=== PATIENT | male | born 1970 | race Caucasian/White ===

== ENCOUNTER 2022-01-10 08:02 | Outpatient (CLI) | payer OTHER, SELFPAY ==
--- OUTSIDE RECORDS SUMMARY | 2022-01-10 08:04 | XMS_ITS | Clinical Summary ---
:1970 Author Organization [employer] [facility] [place] [address] Care Team Providers Name Role Phone Freddie Ha MD Primary Care Provider Allergies No known active allergies Medications No known medications Active Problems Problem Noted Date Deaf Immunizations Name Administration Dates Next Due Influenza, IIV3 (Age >=3 years) 01/12/2013, 03/10/2012 Influenza, IIV4 01/17/2017, 03/14/2015 Tdap 05/09/2009 Tuberculin (PPD) 09/13/2009, 08/31/2009 Family History Medical History Relation Name Comments Cancer Father leukemia. Cancer Maternal Grandmother lung Relation Name Status Comments Father Maternal Grandmother Social History Tobacco Use Types Packs/Day Years Used Date Never Smoker Smokeless Tobacco: Never Used Tobacco Cessation: Counseling Given: Yes Alcohol Use Standard Drinks/Week Comments Yes 0 (1 standard drink = 0.6 oz pure alcoho l) occ. 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 Body Mass Index 31.06 04/14/2019 9:49 AM MAIL HANDLERS SUPERVISOR Plan of Treatment Health Maintenance Due Date Last Done Comments COVID-19 vaccine series (#1) 1970 Hepatitis C screening for age 1203/15/1989 18-79 Colonoscopy through age 75 2016 Tetanus booster 05/09/2019 05/09/2009 BMI (ht and wt on same day) for 04/14/2020 04/14/2019, 02/22, age 18+ 11/06/2017, Additional history exists Depression screening for age 12+ 11/18/2020 11/19/2019, 03/2019, 07/07/2019, Additional history exists Zoster (shingles) series for age 1203/15/2021 50+ (1 of 2) Influenza for age 50-64 11/23/2021 01/17/2017, 03/14/2015, 01/12/2013, Additional history exists Lipids for age 45-75 11/05/2022 11/05/2017, 05/20/2013, 09/21/2010, Additional history exists Tdap Completed 05/09/2009 Results Not on filefrom Last 3 Months Insurance Payer Benefit Plan / Subscriber ID Effective Dates Phone Addre ss Type Group WC WORKERS COMP WC [facility] [id number] 2019-Pres [address] [place] [address] [employer] [id number] 2019-Presen [address] [place] [address] Kal Meyer Workers Comp Self [address] (Home) [place] [address] Kal Meyer Workers Comp Self [address] (Home) [place] [address] Care Teams Bridge Expert Relationship Specialty Start Date End Date Freddie Ha MD PCP - General Family Practice 01/12/13 [address] [place] [address]
--- NOTE | 2022-01-10 08:15 | MR_ITS ---
[address] [address] Phone:?[phone] Fax:?[phone] Referring Physician Information: Geovanny Schumacher [address] [facility] [address] Phone:?[phone] Fax:?[phone] Patient:?Kal Meyer D.O.B:?1970 Sex:?Male Phone:?[phone] [facility] MRN:?[id number] Exam Date:?01/10/2022 ? EXAM: MRI of the RIGHT SHOULDER, without contrast CLINICAL INFORMATION: Male, 51 years old, with right shoulder pain. INDICATION: Evaluate for rotator cuff tear. PRIOR SURGERY: None reported. PLAIN FILMS: None available. COMPARISONS: No prior MRIs available. TECHNICAL INFORMATION: Using a 1.5T MR scanner and a localizing surface coil: coronal obliques: PD, T2, STIR sagittal obliques: PD, T2 axials: PD, T2 SEDATION: None CONTRAST: None FINDINGS: Bones: Proximal humerus: No fracture or marrow edema/pathology. No humeral Hill-Sachs or reverse Hill-Sachs lesion/impaction or contusion. Glenoid: No fracture or marrow edema/pathology. No osseous Bankart lesion. Rotator cuff and muscles/tendons: Supraspinatus: Moderate supraspinatus tendinopathy with broad-based intermediate grade partial thickness tearing and a superimposed 1.1 x 0.9 cm area of full- thickness tearing at the anterior tendon insertion (sagittal T2 series 8 and coronal STIR series 4 image 11). No muscle atrophy. Infraspinatus: No tendinopathy, tear or atrophy. Teres minor: No tendinopathy, tear or atrophy. Subscapularis: Mild-moderate tendinopathy of the superior distal subscapularis with a 9 x 8 mm area of intermediate grade partial tearing at the superior leading edge of the tendon. No full-thickness tear or muscle atrophy. Deltoid: No strain or atrophy. Coracoacromial arch: Acromion morphology: The acromion has type II morphology. No discrete subacromial osseous spur or os acromiale. Acromiohumeral space: The acromiohumeral space is within normal limits. Coracohumeral space: The coracohumeral space is within normal limits. Acromioclavicular joint: Joint: Moderate-marked AC joint arthropathy with 5 mm of inferior osteophytosis, which results in a supraspinatus contour abnormality (sagittal T2 series 8 image 12 and coronal T2 series 6 image 11). Ligaments: Coracoclavicular ligaments are intact. Bursae: Subacromial-subdeltoid: Mild subacromial-subdeltoid bursitis. Subcoracoid: No convincing subcoracoid bursal thickening/bursitis. Biceps tendon: The long head of the biceps tendon is medially subluxated at the lesser tuberosity. Mild to moderate tendinopathy and low-grade partial-thickness tearing of the intra-articular biceps long head tendon (sagittal PD series 7 images 8-14). Glenohumeral joint: Effusion/cyst: Small glenohumeral joint effusion. Articular cartilage: Humeral head: No osteochondral abnormalities. Glenoid: No osteochondral abnormalities. Loose bodies: No discrete intra-articular body within the joint. Labrum:?No discrete labral tear or paralabral cyst identified on this non- arthrographic study. Inferior glenohumeral ligament/axillary pouch:?Moderate thickening of the inferior capsuloligamentous structures (coronal PD series 5 images 13-20). Additionally, there is soft tissue thickening throughout the rotator interval (sagittal PD series 7 images 9-14). IMPRESSION: 1. Moderate supraspinatus tendinopathy with a 1.1 x 0.9 cm area of full- thickness anterior insertional footprint tearing superimposed upon broad-based intermediate grade partial-thickness articular surface tearing. 2. Findings in keeping with a biceps juan injury: -Mild-moderate subscapularis tendinopathy with a 9 x 8 mm area of intermediate grade partial-thickness tearing at the superior leading edge of the tendon. -Medial subluxation of the biceps long head tendon at the lesser tuberosity. -Moderate tendinopathy and ill-defined low-grade partial tearing of the intra- articular biceps long head tendon, particularly adjacent to the lesser tuberosity. 3. Findings in keeping with any clinical symptoms of adhesive capsulitis. 4. Small glenohumeral joint effusion. No full-thickness chondral defect or evidence of osteoarthritis. 5. Moderate-marked AC joint arthropathy with inferior osteophytosis that results in a supraspinatus contour reality. Additionally, there is mild subacromial- subdeltoid bursitis. However, the acromiohumeral space is normal. 6. No labral tear or paralabral cyst. BC Electronically signed on 01/10/2022 1:46:00 PM by Shukri Tellez M.D.
== END 2022-01-10 08:03 | disposition home or self-care (01) ==
PROVIDERS: PCP Family Medicine; Visit Provider Physician Assistant
DX: M25.511 Pain in right shoulder (principal); M75.01 Adhesive capsulitis of right shoulder; M25.411 Effusion, right shoulder; M75.101 Unspecified rotator cuff tear or rupture of right shoulder, not specified as traumatic; S46.911A Strain of unspecified muscle, fascia and tendon at shoulder and upper arm level, right arm, initial encounter
CPT/HCPCS: 73221

== ENCOUNTER 2022-02-26 08:29 | Outpatient (CLI) | payer OTHER, SELFPAY ==
--- OUTSIDE RECORDS SUMMARY | 2022-02-26 08:32 | XMS_ITS | Clinical Summary ---
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 Body Mass Index 31.06 04/14/2019 9:49 AM FITNESS SALES ASSOCIATE Plan of Treatment Health Maintenance Due Date Last Done Comments COVID-19 vaccine series (#1) 1970 HIV for age 15-65 1986 Hepatitis C screening for age 1203/15/1989 18-79 [...] ss Type Group WC WORKERS COMP WC [facility] [id number] 2019-Pres [address] [place] [address] [employer]NERS [facility] [employer]VANTAGE [id number] 2019-Presen [address] [place] [address] Kal Meyer Workers Comp Self [address] (Home) [place] [address] Kal Meyer Workers Comp Self [address] (Home) [place] [address] Care Teams Lawyers Relationship Specialty Start Date End Date Freddie Ha MD PCP - General Family Practice 01/12/[address] [place] [id number]
[2022-02-26 14:00] LABS: Chloride* 106 mmol/L (96-114)
[2022-02-26 14:01] LABS: Potassium* 4.4 mmol/L (3.6-5.1); Sodium* 141 mmol/L (135-149)
[2022-02-26 14:03] LABS: Creatinine* 0.9 mg/dL (0.5-1.5); Estimated Glomerular Filt Rate 104 ml/min
[2022-02-26 14:04] LABS: Blood Urea Nitrogen* 20 mg/dL (7-30); Calcium* 9.2 mg/dL (8.4-10.6); Carbon Dioxide* 26 mmol/L (20-32); Glucose* 83 mg/dL (60-115)
== END 2022-02-26 08:30 | disposition home or self-care (01) ==
PROVIDERS: PCP Family Medicine; Visit Provider Family Medicine
DX: Z01.818 Encounter for other preprocedural examination (principal)
CPT/HCPCS: 80048

== ENCOUNTER 2022-03-08 07:00 | Day surgery (SDC) | payer OTHER, SELFPAY ==
[2022-03-08] VITALS (15 sets, daily range): BP systolic 106–139; BP diastolic 68–97; PULSE 51–69; RESP 14–18; TEMP 36.2–36.7; O2SAT 92–99; BMI 26.6
[2022-03-08] MEDS: LACTATED RINGERS 1000 ML 1,000 ML 100 ML IV ×2 (07:30→09:41)
[2022-03-08] MEDS: SODIUM CHLORIDE 0.9 % (FLUSH) 10 ML SYRINGE IVF (07:30)
[2022-03-08] MEDS: CELECOXIB 200 MG CAPSULE PO (07:38)
[2022-03-08] MEDS: ACETAMINOPHEN 500 MG TABLET 1000 MG PO (07:38)
[2022-03-08] MEDS: OXYCODONE (CR) 10 MG TAB.ER.12H PO (07:39)
--- NOTE | 2022-03-08 08:12 | SUR.PREOP ---
TIME?OUT:?0816 PT/RN/MDA?VERIFICATION?OF?SURGICAL?SITE,?PROCEDURE,?AND?CONSENT OBTAINED?PRIOR?TO?INVASIVE?PROCEDURE.
[2022-03-08] MEDS: MIDAZOLAM HCL 1 MG/ML inj IVP (08:18)
[2022-03-08] MEDS: fentaNYL 100 MCG/2 ML inj IVP (08:18)
--- NOTE | 2022-03-08 09:04 | W.PM.NB ---
Nerve Block Nerve Block Time Seen by Provider: 08:16 Date Seen: 03/08/22 Type of block requested by surgeon for post-operative analgesia: supraclavicular Side: right Time out performed: Yes Verification of patient name: Yes Verification of date of : Yes Site marking: site marked Name of person performing procedure: Nish Continuous monitoring Was continuous monitoring of O2 sat, B/P, java web application developer, recorded every 15 minutes?: Yes Procedure Checklist: sterile prep, needles and gloves Ultrasound guided. Images saved: Yes Medications given in 5ml increments after negative aspiration: Ropivicaine %: 0.5 mL: 20 Needle gauge: 22 Decadron (mg): 10 Precedex (mcg): 25 Patient tolerated procedure well: Yes Block Charges Block Charge (with Pro Fee): Brachial Plexus Use of Ultrasound Machine for Block: Yes- US Guidance/pain block
[2022-03-08] MEDS: EPINEPHrine 1 MG in SODIUM CHLORIDE IRRIG SOLUTION 3,000 ML 6303 MG IRRIGATION (09:30)
--- NOTE | 2022-03-08 10:31 | PM.ORPRC ---
Procedure Note Date of procedure: 03/08/22 Procedure: PREOPERATIVE DIAGNOSIS: Right shoulder rotator cuff tear, AC joint arthrosis POSTOPERATIVE DIAGNOSIS: Right shoulder rotator cuff tear, AC joint arthrosis NAME OF OPERATION: Right shoulder arthroscopic subacromial decompression, distal clavicle excision, mini open rotator cuff repair SURGEON: Vernon Amaya MD FORM TAMPER OPERATOR: Brigitte Aguilera PA-C ANESTHESIA: Supraclavicular block plus general endotracheal ESTIMATED BLOOD LOSS: 5 mL COMPLICATIONS: None SPECIMENS: None DRAINS: None PREOPERATIVE ANTIBIOTICS: Ancef 2 grams INDICATIONS: The patient is a 51-year-old with a history of right shoulder pain secondary to the above diagnoses. Despite appropriate non operative management, they continue to have symptoms. Operative intervention was recommended. The risks, benefits and expected outcomes were discussed in detail. These included but were not limited to: Infection, bleeding, injury to blood vessel or nerve, venous thromboembolism. All questions were answered to their satisfaction. PROCEDURE: A supraclavicular block was placed by Anesthesia. General anesthesia was administered. The patient was placed in the high beach chair position. The right shoulder was prepped and draped in the usual sterile fashion. The glenohumeral joint was infiltrated with 20 mL of normal saline with epinephrine. The posterior portal was established, the arthroscope was introduced. The anterior portal was established, Diagnostic arthroscopy was performed with findings as follows: The biceps has some longitudinal splitting, just proximal to the bicipital groove. There is some degenerative fraying of the anterior and superior labrum. Articular surfaces on the humeral head and glenoid are normal. There are no loose bodies. There is a full-thickness tear of the supraspinatus. The shaver was used to debride the labrum. The arthroscope was placed in the subacromial space, the lateral portal was established. The [employer] [place] was used to dissect the acromion free. The CA ligament was recessed off the anterior acromion, the AC joint was exposed. The acromioplasty was performed with the bur in the posterior portal. The bur was then placed in the lateral portal and the lateral and anterior aspect of the acromion were resected. The undersurface of the distal clavicle was resected through the lateral portal. Finally, the bur was placed in the anterior portal and the remainder of the distal clavicle was resected for a total of 10 mm. An accessory anterolateral portal was placed. The subacromial/subdeltoid bursa was aggressively debrided. There is a full-thickness tear of the supraspinatus. Arthroscopic instruments were removed. The accessory anterolateral portal was extended proximally and distally, subcutaneous dissection was taken with electrocautery to the deltoid. The deltoid was divided in line with its fibers. The static retractor was placed. The subacromial/subdeltoid bursa was debrided with the Cornelius scissors. The greater tuberosity was debrided to punctate bleeding bone with the Lempert rongeur. The upper subscap insertion was released with electrocautery. The most proximal and lateral aspect of the lesser tuberosity was debrided with the Lempert rongeur. A SutureTape was placed in the upper border of the subscap in an inverted mattress fashion. It was placed in the most proximal, lateral aspect of the lesser tuberosity to secure the upper subscap and centralize the biceps. Both limbs of the FiberWire in the eyelet were passed through the upper border of the subscap and tied over the top, completing subscap repair. Two Arthrex Bio[employer] SwiveLock anchors were placed just off the articular surface. Both limbs of the FiberWire and fiber tape were passed using the scorpion. A fiber link was placed in the leading edge of the rotator cuff x2. We tied the 2 central FiberWire sutures over the rotator cuff. We then proceeded with a lateral row of SwiveLock anchors x 2 crossing the FiberTape and incorporating the FiberWire and fiber link into each lateral row anchor. This provides an anatomic, watertight repair of the rotator cuff. There is no tension on the repair with the shoulder at 0? abduction. The wound was irrigated with normal saline off the pump. The deltoid was repaired with an 0 Vicryl in an interrupted [id number] fashion. Subcutaneous tissues were closed with a 3-0 Vicryl. Skin was closed with a 3-0 Monocryl in a subcuticular fashion. A dry dressing, polar care and sling were applied. Sponge and needle counts were correct x2. The patient tolerated the procedure well. There were no apparent complications. They were carefully transferred to the hospital bed and taken to the postanesthesia care unit in satisfactory condition. PLAN: The patient will be discharged to home. No active range of motion of the shoulder will be allowed for 6 weeks postoperatively. They can work on active range of motion of the elbow, wrist and fingers. They will follow up in the office next week for a wound check and an AP and transscapular Y-view of the shoulder prior to being seen.
--- NOTE | 2022-03-08 10:45 | W.ANESCHARGE ---
Anesthesia Charges Start Date/Time Anesthesia Start Date: 03/08/22 Anesthesia Start Time: 08:44 Stop Date/Time Anesthesia Stop Date: 03/08/22 Anesthesia Stop Time: 11:02 Summary Emergency: No
--- NOTE | 2022-03-08 11:03 | W.ANESCHARGE ---
Anesthesia Charges Start Date/Time Anesthesia Start Date: 03/08/22 Anesthesia Start Time: 08:44 Stop Date/Time Anesthesia Stop Date: 03/08/22 Anesthesia Stop Time: 11:02 Summary Emergency: No
== END 2022-03-08 12:58 | disposition home or self-care (01) ==
PROVIDERS: PCP Family Medicine; Visit Provider Orthopaedic Surgery
PROC: (CPT 23412; principal; 2022-03-08 08:15)
DX: M75.121 Complete rotator cuff tear or rupture of right shoulder, not specified as traumatic (principal); M19.011 Primary osteoarthritis, right shoulder; M25.511 Pain in right shoulder
CPT/HCPCS: 29824; 29826; 23412; 01630; 64415; 76942; A9270; C1713; J0171; J0330; J1100; J2250; J2405; J2704; J2710; J2795; J3010; J7120

== ENCOUNTER 2023-03-16 10:21 | Emergency (ER) | payer OTHER, SELFPAY ==
[2023-03-16 10:30] VITALS: BP 136/88; PULSE 69; RESP 18; TEMP 36.3; O2SAT 97; BMI 27.8
--- NOTE | 2023-03-16 11:37 | CRLHL7_ITS ---
For Patients: As a result of the Century Cures Act, medical imaging exams and procedure reports are released immediately into your electronic medical record. You may view this report before your referring provider. If you have questions, please contact your health care provider. INDICATION: Abdominal pain. COMPARISON: None. TECHNIQUE: 101 mL Isovue-370 IV contrast. FINDINGS: Semiopaque ground-glass nodule left lower lobe 14 mm. Similar size less dense ground-glass nodule abutting the plural anterior from this. Loose 2.2 cm ground-glass nodule in the right middle lobe. Some ground-glass at the periphery of the lingula. Moderate low attenuation of liver parenchyma diffusely. No mass. No ductal dilatation. Around a large enhancing nodule of the left adrenal 2.8 cm diameter. Some heterogeneity of enhancement. Small cyst posterior upper pole left kidney. Tiny cyst ventral lower pole left kidney. S several small cysts in the parenchyma of the lower pole right kidney. No mass. No nephrolithiasis. Normal retrocecal appendix. No dilatation or inflammation of large or small bowel. A few rare diverticula in the left colon. No air or fluid in the peritoneum garsia. Normal size of the prostate. No pelvic or inguinal adenopathy. No significant bone finding. IMPRESSION: 1. Nonspecific enhancing nearly 3 cm nodule left adrenal. This does not have features typical of an adenoma. Further characterization with adrenal CT protocol recommended. 2. Scattered foci of ground-glass in the lung bases may be age indeterminate infectious or inflammatory. Correlate with clinical presentation. CT of the chest would better characterize if there is clinical concern. 3. Hepatic steatosis. Please note that all CT scans at this facility use dose modulation, iterative reconstruction, and/or weight-based dosing when appropriate to reduce radiation dose to as low as reasonably achievable. Dictated by Gregory Bennett MD @ 03/16/2023 2:18:45 PM (Electronically Signed)
--- NOTE | 2023-03-16 11:43 | ED_ITS ---
HPI - General Adult General Time Seen by Provider: 11:21 Date Seen: 03/16/23 Chief complaint: Back Injury/Pain Stated complaint: flank pain Time Seen by Provider: 03/16/23 11:21 Source: patient, RN notes reviewed and copy and print associate (ASL via ipad) Mode of arrival: ambulatory Limitations: no limitations History of Present Illness HPI narrative: This 53-year-old male is coming in with complaint of left lower back pain but note it seems like it is more inside. He got up earlier today, was there. He is not sure if it happened upon awakening or getting up. He has a throbbing type pain in that left low back, no fevers, no history of trauma. There is no change in urination, urine is clear, no burning, not cloudy. He ate breakfast this morning, had no problems with it. He is not having any nausea or vomiting, no anorexia. Bowel habits have been normal but does note maybe today's been a little bit more gassy with flatus. Does not note abdominal pain per se. Pain is not radiating down the leg. He reportedly has had an inguinal hernia repair, does states that he is degenerative disc disease but no history of sciatica. He tried some Tylenol earlier, maybe helped a little bit. Related Data Previous Rx's Medication Instructions Recorded cyclobenzaprine 10 mg tablet 10 mg PO TID PRN muscle spasm #30 03/16/23 tabs ketorolac 10 mg tablet 10 mg PO Q6H PRN pain 5 days #20 03/16/23 tabs Allergies Allergy/AdvReac Type Severity Reaction Status Date / Time No Known Drug Allergies Allergy Verified 07/16/22 07:47 Review of Systems Status of ROS: Reports: 6 or more systems reviewed and unremarkable except as noted in History and below [facility] Medical History History of concussion (12/2018) ?Z87.820 - Personal history of traumatic brain injury (ICD-10) History of cervical fracture ?Z87.81 - Personal history of (healed) traumatic fracture (ICD-10) Surgical History Status post right rotator cuff repair (03/08/22) ?Z98.890 - Other specified postprocedural states (ICD-10) H/O hernia repair ?Z98.890 - Other specified postprocedural states (ICD-10) ?Z87.19 - Personal history of other diseases of the digestive system (ICD-10) Social History Smoking Status: Never smoker How often do you have a drink containing alcohol: 2-4 times a month Alcohol type: hard liquor How many standard drinks containing alcohol do you have on a typical day: 1 or 2 How often do you have six or more drinks on one occasion: Never AUDIT-C Alcohol total score: 2 Non-prescribed substance use: denies use Caffeine: Yes Little interest or pleasure in doing things: several days Feeling down, depressed, or hopeless: several days Exam Const: Vital Signs, click to edit/add: Vital Signs - 24 hr 03/16/23 10:30 03/16/23 13:30 Temperature 97.4 F L 97.4 F L Pulse Rate [Right Pulse Oximeter] 69 69 Respiratory Rate 18 18 Blood Pressure [Ri ght Upper Arm] 136/88 136/88 Pulse Oximetry 97 97 Oxygen Delivery Me thod Room Air Room Air Patient is alert, interactive, no apparent distress. Sclera clear, face atraumatic. CV regular rate and rhythm, no murmur, normal S1-S2, no S3-S4. No JVDs distension noted, neck is slender. No midline tenderness over his back, no skin changes visualized. Lungs are clear, good air entry, no wheezing or crackles. He has no CVA tenderness. No tenderness in the lumbar area in the paraspinous area of his back, nothing over the iliac crest. I cannot find any palpable tenderness on his back. On his abdominal exam, does have some left mid to lower quadrant tenderness without rebound or guarding, nor underlying mass. There is no inguinal mass noted but states he has maybe a little tender in the superior portion of the left inguinal area. Documenting provider has reviewed patient's vital signs: yes Course Course ED Course: In this differential, certainly it could be musculoskeletal back pain but with his abdominal exam, do wonder about intra-abdominal pathology. He could have an early diverticulitis, possible early kidney stone. Intra-abdominal pathology does need to be ruled out, we have discussed doing CT of his abdomen which he does agree. Will try to see if he responds to Toradol for some initial pain management. Will get a full complement of labs including urinalysis. Nephrolithiasis and renal colic is also possibility. Reevaluation(s) Time of Reevaluation #1: 13:30 Reevaluation #1: Reviewed with patient that we are waiting the CT to be read by Radiology. He is feeling better with the Toradol. We are just waiting his CT results at this time. Time of Reevaluation #2: 14:55 Reevaluation #2: Have reviewed incidental CT finding of the left adrenal nodule, will require outpatient dedicated CT, can get this done with his primary. Also reviewed the back pain, will have him try a course of Toradol and Flexeril, continue with baseline Tylenol outpatient. We discussed follow-up with his primary care provider, will be providing him handouts. Will give another 15 mg IV Toradol prior to discharge. Vital Signs Vital signs: Initial Vital Signs Temperature 97.4 F L 03/16/23 10:30 Temperature Source Temporal Artery Scan 03/16/23 10:30 Pulse Rate 69 03/16/23 10:30 Respiratory Rate 18 03/16/23 10:30 Blood Pressure 136/88 03/16/23 10:30 Blood Pressure Mean 104 03/16/23 10:30 Blood Pressure Position Sitting 03/16/23 10:30 Pulse Oximetry 97 03/16/23 10:30 Oxygen Delivery Method Room Air 03/16/23 10:30 Vital Signs Temperature 97.4 F L 03/16/23 10:30 Pulse Rate 69 03/16/23 10:30 Respiratory Rate 18 03/16/23 10:30 Blood Pressure 136/88 03/16/23 10:30 Pulse Oximetry 97 03/16/23 10:30 Oxygen Delivery Method Room Air 03/16/23 10:30 Temperature 97.4 F L 03/16/23 13:30 Pulse Rate 69 03/16/23 13:30 Respiratory Rate 18 03/16/23 13:30 Blood Pressure 136/88 03/16/23 13:30 Pulse Oximetry 97 03/16/23 13:30 Oxygen Delivery Method Room Air 03/16/23 13:30 Medications Administered Medications: Discontinued Medications Generic Name Dose Route Start Last Admin Trade Name Freq PRN Reason Stop Dose Admin Sodium Chloride 500 mls @ 500 mls/hr 03/16/23 11:36 03/16/23 14:49 0.9 % Sodium Chloride 500 Ml IV 03/16/23 12:35 Infused .Q1H ONE Infusion Ketorolac Tromethamine 15 mg 03/16/23 11:36 03/16/23 12:32 Ketorolac 15 Mg/Ml Inj IVP 03/16/23 11:37 15 mg ONCE ONE Administration Medical Decision Making Lab Data Lab results reviewed: Yes I reviewed the patient's lab results Labs: Lab Results 03/16/23 03/16/23 Range/Units 11:55 12:23 WBC 9.51 (4.50-11.00) K/uL RBC 5.64 (4.30-5.90) m/uL Hgb 16.6 (13.5-17.5) gm/dL Hct 48.7 (37.0-53.0) % MCV 86 (80-100) fL MCH 29 (26-34) pg MCHC 34 (32-36) gm/dL RDW Coeff of [place]quan 12.7 (11.5-15.5) % Plt Count 256 (140-440) K/uL Neut % (Auto) 77.3 H (42.0-72.0) % Lymph % (Auto) 14.4 L (20-44) % [place] % (Auto) 5.2 (0.0-11.0) % Eos % (Auto) 2.1 (0.0-7.0) % Baso % (Auto) 0.1 (0.0-3.0) % Neut # (Auto) 7.40 H (1.7-7.0) K/uL Lymph # (Auto) 1.40 (0.90-2.90) K/uL [place] # (Auto) 0.50 (0.00-0.90) K/UL Eos # (Auto) 0.20 (0.00-0.50) K/uL Baso # (Auto) 0.01 (0.00-0.30) K/uL Abs Immat Gran (auto) 0.09 (0.00-0.30) K/uL Imm/Tot Granulo (auto) 0.9 % Sodium 138 (135-149) mmol/L Potassium 4.4 (3.6-5.1) mmol/L Chloride 102 (96-114) mmol/L Carbon Dioxide 27 (20-32) mmol/L Anion Gap 9 (7-15) mEq/L BUN 16 (7-30) mg/dL Creatinine 0.7 (0.5-1.5) mg/dL Estimated Creat Clear 135.49 Estimated GFR 111 ml/min Glucose 106 (60-115) mg/dL Lactate 1.3 (0.5-1.9) mmol/L Calcium 9.3 (8.4-10.6) mg/dL Total Bilirubin 0.8 (0.1-1.5) mg/dL AST 22 (12-35) U/L ALT 22 (4-50) U/L Alkaline Phosphatase 75 (40-150) U/L C-Reactive Protein 0.6 (0.5-1.0) mg/dL Total Protein 7.6 (6.0-8.3) g/dL Albumin 4.6 (3.3-5.0) g/dL Urine Color Yellow (Yellow) Urine Appearance Clear (Clear) Urine pH 7.5 (5.0-8.5) Ur Specific [place] 1.020 (1.000-1.030) Urine Protein Negative (Negative) Urine Glucose (UA) Negative (Negative) Urine Ketones Negative (Negative) Urine Blood Negative (Negative) Urine Nitrite Negative (Negative) Urine Bilirubin Negative (Negative) Urine Urobilinogen 0.2 (0.2-1.0) Ur Leukocyte Esterase Negative (Negative) Urine RBC 0-2 (0-2) Urine WBC 0-2 (0-5) Ur Squamous Epith Cells Few (None-Few) Urine Bacteria None (None) Imaging Data CT scan - abdomen: Attestation: I have reviewed the pertinent imaging results. Radiologist's impression: Patient: NORMA BOLIVAR Facility:?[facility] Patient ID:?[id number] Site Patient ID:?[id number]. Site :?[id number] Study:?CT Abdomen/Pelvis W/IV-03/16/2023 12:26:57 PM Ordering Physician:?Aj Cameron Final Report: INDICATION: Abdominal pain. COMPARISON: None. TECHNIQUE: 101 mL Isovue-370 IV contrast. FINDINGS: Semiopaque ground-glass nodule left lower lobe 14 mm. Similar size less dense ground-glass nodule abutting the plural anterior from this. Loose 2.2 cm ground- glass nodule in the right middle lobe. Some ground-glass at the periphery of the lingula. Moderate low attenuation of liver parenchyma diffusely. No mass. No ductal dilatation. Around a large enhancing nodule of the left adrenal 2.8 cm diameter. Some heterogeneity of enhancement. Small cyst posterior upper pole left kidney. Tiny cyst ventral lower pole left kidney. S several small cysts in the parenchyma of the lower pole right kidney. No mass. No nephrolithiasis. Normal retrocecal appendix. No dilatation or inflammation of large or small bowel. A few rare diverticula in the left colon. No air or fluid in the peritoneum garsia. Normal size of the prostate. No pelvic or inguinal adenopathy. No significant bone finding. IMPRESSION: 1. Nonspecific enhancing nearly 3 cm nodule left adrenal. This does not have features typical of an adenoma. Further characterization with adrenal CT p rotocol recommended. 2. Scattered foci of ground-glass in the lung bases may be age indeterminate infectious or inflammatory. Correlate with clinical presentation. CT of the chest would better characterize if there is clinical concern. 3. Hepatic steatosis. Please note that all CT scans at this facility use dose modulation, iterative reconstruction, and/or weight-based dosing when appropriate to reduce radiation dose to as low as reasonably achievable. Dictated by Gregory Bennett MD @ 03/16/2023 2:18:45 PM (Electronic Signature) Critical Care Time Critical Care Time Critical Care Time: No Discharge Plan Discharge Clinical Impression: Low back pain Patient Disposition: Home, Self-Care Condition: Stable Instructions: Acute Low Back Pain (ED), Lower Back Exercises (ED) Additional Instructions: Can take Tylenol per bottle directions baseline for pain. Have written for Flexeril and Toradol. Do not use other NSAIDs or ibuprofen while on the Toradol. Follow-up with Dr. Lema for primary provider in clinic, need to have an adrenal CT protocol done for the left adrenal nodule found incidentally on the CT scan. Relative rest for your back, activity as tolerated. Have provided a handout on exercises that she can try. If anything is causing you increased pain, recommend stopping that activity. May need to consider physical therapy if you are having ongoing symptoms, can talk to your provider at the clinic follow-up about this further. Can try ice and/or heat to your back, use which provides you the most comfort. Activity Level: Activity as Tolerated Prescriptions: New ketorolac 10 mg tablet 10 mg PO Q6H PRN (Reason: pain) 5 Days Qty: 20 0RF cyclobenzaprine 10 mg tablet 10 mg PO TID PRN (Reason: muscle spasm) Qty: 30 0RF Follow Up/Referrals: Dion Vargas MD [Primary Care Provider] - Stand Alone Forms: PST [employer] Info Instructions
[2023-03-16 12:06] LABS: Lactate* 1.3 mmol/L (0.5-1.9)
[2023-03-16 12:26] LABS: Basophils Absolute Auto 0.01 K/uL (0.00-0.30); Basophils Percent Auto 0.1 % (0.0-3.0); Eosinophils Percent Auto 2.1 % (0.0-7.0); Hematocrit 48.7 % (37.0-53.0); Hemoglobin* 16.6 gm/dL (13.5-17.5); Immature Granulocytes Abs Auto 0.09 K/uL (0.00-0.30); Immature Granulocytes Pct Auto 0.9 %; Lymphocytes Percent Auto 14.4 % (20-44); Mean Corpuscular HGB Conc 34 gm/dL (32-36); Mean Corpuscular Hemoglobin 29 pg (26-34); Mean Corpuscular Volume 86 fL (80-100); Monocytes Percent Auto 5.2 % (0.0-11.0); Neutrophils Percent Auto 77.3 % (42.0-72.0); Platelet Count* 256 K/uL (140-440); RDW Coefficient of Variation % 12.7 % (11.5-15.5); Red Blood Count 5.64 m/uL (4.30-5.90); White Blood Count* 9.51 K/uL (4.50-11.00)
[2023-03-16 12:29] LABS: Appearance Urine Clear (Clear); Bilirubin Urine Negative (Negative); Blood Urine Negative (Negative); Color Urine Yellow (Yellow); Glucose Urine Negative (Negative); Ketones Urine Negative (Negative); Leukocyte Esterase Urine Negative (Negative); Nitrite Urine Negative (Negative); Protein Urine Negative (Negative); Urobilinogen Urine 0.2 (0.2-1.0); pH Urine 7.5 (5.0-8.5)
[2023-03-16 12:31] LABS: Slide Review Reflex No
[2023-03-16] MEDS: 0.9 % SODIUM CHLORIDE 500 ML 500 ML IV (12:32)
[2023-03-16] MEDS: KETOROLAC 15 MG/ML inj IVP ×2 (12:32→15:08)
[2023-03-16 12:35] LABS: Albumin* 4.6 g/dL (3.3-5.0); Chloride* 102 mmol/L (96-114); Sodium* 138 mmol/L (135-149)
[2023-03-16 12:36] LABS: Potassium* 4.4 mmol/L (3.6-5.1)
[2023-03-16 12:38] LABS: Anion Gap 9 mEq/L (7-15); Bilirubin Total* 0.8 mg/dL (0.1-1.5); Carbon Dioxide* 27 mmol/L (20-32); Creatinine* 0.7 mg/dL (0.5-1.5); Est. Creatinine Clearance* 135.49; Estimated Glomerular Filt Rate 111 ml/min
[2023-03-16 12:39] LABS: Alanine Aminotransferase* 22 U/L (4-50); Alkaline Phosphatase* 75 U/L (40-150); Aspartate Amino Transferase* 22 U/L (12-35); Blood Urea Nitrogen* 16 mg/dL (7-30); Calcium* 9.3 mg/dL (8.4-10.6); Glucose* 106 mg/dL (60-115); Total Protein* 7.6 g/dL (6.0-8.3)
[2023-03-16 12:42] LABS: C Reactive Protein* 0.6 mg/dL (0.5-1.0)
[2023-03-16 12:53] LABS: RBC Urine 0-2 (0-2); Squamous Epithelial Cell Urine Few (None-Few); WBC Urine 0-2 (0-5)
[2023-03-16 13:30] VITALS: BP 136/88; PULSE 69; RESP 18; TEMP 36.3; O2SAT 97
[2023-03-16 14:57] VITALS: BP 138/97; PULSE 79; RESP 18; O2SAT 97
[2023-03-16 15:15] VITALS: BP 138/97; PULSE 79; RESP 18; TEMP 36.3
== END 2023-03-16 15:12 | disposition home or self-care (01) ==
PROVIDERS: Emergency Provider Family Medicine; PCP Family Medicine
DX: M54.50 Low back pain, unspecified (principal)
CPT/HCPCS: 36415; 74177; 80053; 81001; 83605; 85025; 86140; 96374; 96376; 99284; J1885; J7120; Q9967

== ENCOUNTER 2023-04-12 09:56 | Outpatient (CLI) | payer BC, SELFPAY ==
--- NOTE | 2023-04-12 10:00 | CRLHL7_ITS ---
For Patients: As a result of the Century Cures Act, medical imaging exams and procedure reports are released immediately into your electronic medical record. You may view this report before your referring provider. If you have questions, please contact your health care provider. INDICATION: left adrenal lesion TECHNIQUE: CT abdomen and pelvis acquired with 100 cc Isovue 370 IV contrast. COMPARISON: March 16, 2023. FINDINGS: Lower chest: Redemonstration multifocal nodular ground-glass airspace opacities in the lung bases as well as solid and part solid nodules for example right lower lobe part solid nodule with intrinsic bubbly lucencies measuring up to 13 millimeters. Middle lobe ground-glass nodule measuring up to 27 millimeters. ABDOMEN: Liver: Normal enhancement. No focal suspicious hepatic lesions. Gallbladder and biliary: Normal gallbladder without radiopaque stone. Normal caliber bile ducts. Spleen: Normal size and enhancement. Pancreas: Normal enhancement without peripancreatic inflammatory changes or ductal dilatation. Adrenal glands: Redemonstration of left adrenal nodule measuring up to 3 cm. This measures 40 Hounsfield units on noncontrast acquisition, and 125 Hounsfield units on the portal venous echo position. Evaluation is degraded secondary to lack of delayed acquisition. Kidneys and ureters: Normal enhancement. No radio-opaque calculi. No hydroureteronephrosis. Subcentimeter hypodensities are too small to characterize however statistically represent cysts. GI tract: The stomach is relatively decompressed. Normal caliber small and large bowel loops. Normal appendix. Vascular structures: Normal caliber aorta with atherosclerotic calcifications. Lymph nodes: No lymphadenopathy in the abdomen or pelvis by size criteria. Peritoneum: No free air, free fluid, or focal drainable fluid collection. PELVIS: Genitourinary system: Urinary bladder is relatively decompressed. Normal size prostate. SKELETAL STRUCTURES AND SOFT TISSUES: Tiny fat containing umbilical hernia. Bilateral SI joint arthrosis. Tiny sclerotic focus in the right iliac bone, statistically a bone island. Lumbar spondylosis. IMPRESSION: 1. Redemonstration of left adrenal nodule measuring up to 3 cm. This measures 40 Hounsfield units on noncontrast acquisition, and 125 Hounsfield units on the portal venous echo position. Evaluation is degraded secondary to lack of delayed acquisition. However, given the high noncontrast study attenuation as well as the high portal venous attenuation acquisition, findings are more concerning for underlying malignancy such as a hypervascular metastasis versus a pheochromocytoma. Consider further evaluation with tissue sampling including potential medication needs given the differential of pheochromocytoma. 2. Redemonstration of multifocal nodular ground-glass airspace opacities in the lung bases as well as solid and part solid nodules for example right lower lobe part solid nodule with intrinsic bubbly lucencies measuring up to 13 millimeters. Middle lobe ground-glass nodule measuring up to 27 millimeters. Given the findings above, these may reflect potential neuroendocrine/hypervascular metastasis. Other differential considerations however considered less likely include multifocal infection. Please note that all CT scans at this facility use dose modulation, iterative reconstruction, and/or weight-based dosing when appropriate to reduce radiation dose to as low as reasonably achievable. Dictated by Dion Ryder MD @ 04/18/2023 5:06:12 PM (Electronically Signed)
--- OUTSIDE RECORDS SUMMARY | 2023-04-12 10:00 | XMS_ITS | Clinical Summary ---
Author Name Unknown Organization [facility] Address [place], [place] [address] Care Team Providers Care Psychological Tests Sales Agent Name Role Phone Frdedie Ha MD Primary Care Provider Allergies No known active allergies Medications No known medications Active Problems Problem Noted Date Diagnosed Date Deaf Immunizations Name Administration Dates Next Due Influenza, IIV3 (Age >=3 years) 01/12/2013,03/10 Influenza, IIV4 01/17/2017,03/14/2015 Tdap 05/09/2009 Tuberculin (PPD) 09/13/2009,08/31/2009 Family History Medical History Relation Name Comments Cancer Father leukemia. Cancer Maternal Grandmother lung Relation Name Status Comments Father Maternal Grandmother Social History Tobacco Use Types Packs/Day Years Used Date Smoking Tobacco: Never Smokeless Tobacco: Never Tobacco Cessation:Counseling Given: Yes Alcohol Use Standard Drinks/Week Comments Yes 0 (1 standard drink = 0.6 oz pur e alcohol) occ. 1-2 times per month PHQ-2 Answer Date Recorded PHQ-2 TOTAL SCORE 0 11/20/2019 Social Connections Answer Date Recorded Frequency of Communication with Friends and Fami ly Not on file 03/16/2021 Financial Resource Strain Answer Date R ecorded Difficulty of Paying Living Expenses Not on file 03/16/2021 Difficulty of Paying Living Expenses Not on file 03/16/2021 Sex and Gender Information Value Date Recorded Sex Assigned at Not on file Gender Identity Not on file Sexual Orientation Not on file Obstetrics History Last Filed [...] Height 182.9 cm (6') 04/14/2019 9:49 AM TITLE ATTORNEY Body Mass Index 31.06 04/14/2019 9:49 AM TITLE ATTORNEY Plan of Treatment Health Maintenance Due Date Last Done Comments HIV for age 15-65 1986 Hepatitis C screening for age 18-79 1989 Colonoscopy through age 75 2016 Tetanus booster 05/09/2019 05/09/2009 BMI (ht and wt on same day) for age 18+ 04/14/2020 04/14/2019, 03/05/2018, 11/06/2017, Additional history exists Depression screening for age 12+ 11/18/2020 11/19/2019, 07/24/2019, 07/07/2019, Additional history exists Zoster (shingles) series for age 50+ (1 of 2) 2021 Lipids for age 45-75 11/05/2022 11/05/2017, 05/20/2013, 09/21/2010, Additional history exists COVID-19 vaccine series (2022- season) 2022 01/05/2021, 05/05/2020, 04/14/2020 Influenza for age 50-64 11/23/2022 01/18/20 17, 03/14/2015, 01/12/2013, Additional history exists Tdap Completed 05/09/2009 Pneumococcal series for age 6-64 Aged Out No longer eligible based on patient's age to complete this topic Care Teams Psychological Tests Sales Agent Relationship Specialty Start Date End Date Freddie Ha MD [address] [place] [id number] PCP - General Family Practice 01/12/13
== END 2023-04-12 09:57 | disposition home or self-care (01) ==
LOC: CT 09:58
PROVIDERS: PCP Family Medicine; Visit Provider Family Medicine
DX: E27.8 Other specified disorders of adrenal gland (principal)
CPT/HCPCS: 74170; Q9967

== ENCOUNTER 2023-07-09 12:04 | Outpatient (CLI) | payer BC, SELFPAY ==
--- OUTSIDE RECORDS SUMMARY | 2023-07-09 12:07 | XMS_ITS | Clinical Summary ---
Author Name Unknown Organization [facility] [employer] Address [place], [place] [address] Care Team Providers Care Director Child Name Role Phone Freddie Ha MD Primary Care Provider Allergies No known active allergies Medications No known medications Active Problems Problem Noted Date Diagnosed Date Deaf Encounters Date Type Department Care Team Description 07/09/[address] [facility] [address] [facility] [address] [place] [phone] Chuck Barrientos MD 06/25/2023 Travel 06/24/2023 1:30 PM CDT Orders Only [facility] [address] [place] [address] Lab, Wendy Lab 06/19/[address] [facility] [address] [place] [phone] Chuck Barrientos MD Follow Up (Labs and surgery) 06/18/2023 Orders Only [facility] [address] [place] [address] Chuck Barrientos MD <No scans attached> 06/10/[address] [facility] [address] [facility] [address] [place] [phone] Chuck Barrientos MD Surgery Scheduled (Robot left adrenalectomy) 06/07/2023 8:20 AM CDT Orders Only [facility] [address] [place] [address] Lab, Wendy Lab 06/06/2023 Travel 05/31/[address] [facility] [address] [facility] [address] [place] [address] Chuck Barrientos MD Surgery Scheduled (Robotic left adrenalectomy) 05/30/2023 3:20 PM [facility] [employer] [facility] Office Visit [facility] [address] [facility] [address] [facility] [address] [place] [address] Chuck Barrientos MD Consult (Left adrenal mass/) 05/30/2023 Travel 05/07/2023 Orders Only [facility] Scanner 1 scan: (1-Ord) INCOMING RECORDS-LABS, [facility], 05/07/2023 05/07/2023 Orders Only [facility] Scanner 1 scan: (1-Ord) INCOMING RECORDS-CT, [facility], 05/07/2023 05/07/2023 Transcribe Orders [facility] [address] [facility] [address] [place] [phone] Dion Vargas MD 05/06/2023 Telephone [facility] [address] [place] [address] Freddie Ha MD Appointment Request (Surgery scheduling ) from Last 3 Months Immunizations Name Administration Dates Next Due Influenza, [...] Sign Reading Time Taken Comments Blood Pressure 124/84 05/31/2023 7:19 AM [facility] [employer] [facility] Pulse 66 05/31/2023 7:19 AM [facility] [facility] [employer] Temperature 37 ??C (98.6 ??F) 01/14/2019 12:56 PM CDT Respiratory Rate 16 06/03/2019 1:19 PM CDT Oxygen Saturation 99% 01/14/2019 12:56 PM CDT Inhaled Oxygen Concentration - - Weight 95.7 kg (211 lb) 05/31/2023 7:19 AM [facility] [employer] [facility] Height 182.9 cm (6') 04/14/2019 9:49 AM [facility] [employer] [facility] Body Mass Index 28.62 04/14/2019 9:49 AM [facility] [employer] Plan of Treatment Upcoming Encounters Date Type Department Care Team (Latest Contact Info) Description 07/31/2023 7:15 AM CDT Hospital Encounter [facility] [address] [place] [address] Chuck Barrientos MD [address] [facility] [address] [place] [address] 07/31/2023 7:15 AM CDT - 07/31/2023 9:46 AM CDT Surgery [facility] [address] [place] [address] Chuck Barrientos MD [address] [facility] [address] [place] [address] robotic left adrenalectomy 08/06/2023 10:30 AM CDT Nurse/Clinic Staff Only [facility] [address] [facility] [address] [place] [phone] Nurse, Chi Scheduled Procedures Name Priority Associated Diagnoses Date/Ti me ROBOTIC ASSISTED ADRENALECTO MY XI Adrenal mass (HC) 07/31/2023 7:15 AM CDT Health Maintenance Due Date Last Done Comments [...] 09/21/2010, Additional history exists COVID-19 vaccine series ( season) 2022 01/05/2021, 05/05/2020, 04/14/2020 Influenza for age 50-64 11/24/2023 01/18/20 17, 03/14/2015, 01/12/2013, Additional history exists Tdap Completed 05/09/2009 Pneumococcal series for age 6-64 Aged Out No longer eligible based on patient's age to complete this topic Procedures Procedure Name Priority Date/Time Associated Diagnosis Comments METANEPHRINES FRAC QN 24 HR URINE Routine 06/24/2023 6:00 AM CDT Adrenal mass (HC) ALDOSTERONE LC/MS BLOOD Routine 06/07/19 8:09 AM CDT Adrenal mass (HC) METANEPHRINES FRACTIONATED PLASMA FREE Routine 06/07/2023 8:09 AM CDT Adrenal mass (HC) ADRENOCORTICOTROPIC HORMONE (ACTH) PLASMA Routine 06/07/2023 8:09 AM CDT Adrenal mass (HC) CORTISOL POST DEXAMETHASONE SUPPRESSION TEST Routine 06/07/2023 8:09 AM CDT Adrenal mass (HC) SCAN CORRESP-LABORATORY RESULTS 05/07/2023 12:00 AM [facility] [employer] [facility] SCAN CORRESP-IMAGING 05/07/2023 12:00 AM [facility] [employer] LIPID PANEL W REFLEX MEASURED LDL Routine 11/05/2017 10:33 AM CDT Well adult exam from Last 3 Months or Most Recently Relevant to Health Maintenance Results * (ABNORMAL) METANEPHRINES FRAC QN 24 HR URINE (06/24/2023 6:00 AM CDT) Normetaneph Ur 542 Undefined ug/L 07/08/2023 1:08 PM CDT [facility] ([facility]) Normetaneph 24h Ur 1436(H) 156 - 729 ug/24 hr 07/08/2023 1:08 PM CDT [facility] ([facility]) Metaneph Ur 25 Undefined ug/L 07/08/2023 1:08 PM CDT [facility] ([facility]) Metaneph 24h Ur 66 58 - 276 ug/24 hr 07/08/2023 1:08 PM CDT [facility] ([facility]) Urine URINE SPECIMEN / Unknown Non-Blood / Unknown 06/24/2023 6:00 AM CDT 06/25/2023 8:14 AM CDT Narrative [facility] ([facility]) - 07/08/2023 1:08 PM CDT Test(s) [id number], Ur; [id number]-Qoeefxhxfsuh, Ur was developed and its performance characteristics determined by [facility]. It has not been cleared or approved by the Food and Drug Administration. Performed at: ??[address] - [address] ??[id number] Sack Cleaner: Erlinda Campbell MD, Phone: ??[phone] Chuck Barrientos MD URINE [facility] ([facility]) [address] [place] [phone], * (ABNORMAL) METANEPHRINES FRACTIONATED PLASMA FREE (06/07/2023 8:09 AM CDT) [facility] Normetanephrine 742.6(H) 0.0 - 244.0 pg/mL 06/14/2023 3:10 PM CDT [facility] ([facility]) Metanephrine 25.2 0.0 - 88.0 pg/mL 06/14/2023 3:10 PM CDT [facility] ([facility]) Blood BLOOD SPECIMEN / Unknown Venipuncture / Unknown 06/07/2023 8:09 AM CDT 06/07/2023 8:11 AM CDT Narrative [facility] ([facility]) - 06/14/2023 3:10 PM CDT Test(s) [id number]-Cqqwvdfrszdzzoh, Pl; [id number]-Zezgmibcjlgp, Pl was developed and its performance characteristics determined by [facility]. It has not been cleared or approved by the Food and Drug Administration. Performed at: ??[address] - [address] ??[id number] Sack Cleaner: Erlinda Campbell MD, Phone: ??[phone] Chuck Barrientos MD SEND OUTS [facility] ([facility]) [address] [place] [address], * (ABNORMAL) ADRENOCORTICOTROPIC HORMONE (ACTH) PLASMA (06/07/2023 8:09 AM CDT) [facility] ACTH 2.0(L) 7.2 - 63.3 pg/mL 06/08/2023 1:09 PM CDT [facility] ([facility]) Comment:ACTH reference inter stephon for samples collected between 7 and 10 AM. Blood BLOOD SPECIMEN / Unknown Venipuncture / Unknown 06/07/2023 8:09 AM CDT 06/07/2023 8:11 AM CDT Narrative [facility] ([facility]) - 06/08/2023 1:09 PM CDT Performed at: ??01 - [facility] [address] [place] [address] ??[id number] Sack Cleaner: Himanshu Bro MD, Phone: ??[phone] Chuck Barrientos MD SEND OUTS Performing Organization Address [facility] Co de Phone Number [facility] ([facility]) [address] [place] [address] * ALDOSTERONE LC/MS BLOOD (06/07/2023 8:09 AM CDT) Aldosterone 4.5 0.0 - 30.0 ng/dL 06/13/2023 4:08 AM CDT [facility] ([facility]) Blood BLOOD SPECIMEN / Unknown Venipuncture / Unknown 06/07/2023 8:09 AM CDT 06/07/2023 8:11 AM CDT Narrative [facility] ([facility]) - 06/13/2023 4:08 AM CDT Test(s) [id number] was developed and its performance characteristics determined by [facility]. It has not been cleared or approved by the Food and Drug Administration. Performed at: ??[address] - [address] ??[id number] Sack Cleaner: Erlinda Campbell MD, Phone: ??[phone] Chuck Barrientos MD SEND OUTS Performing Organization Address [facility] Co de Phone Number [facility] ([facility]) [address] [place] [address] * CORTISOL POST DEXAMETHASONE SUPPRESSION TEST (06/07/2023 8:09 AM CDT) Cortisol POST Dex 0.7 <5.0 ug/dL 06/07/2023 1:24 PM CDT [facility] TRAL LABORATORY COLLECTION DATE 06/07/2023 1:24 PM CDT [facility] TRAL LABORATORY COLLECTION TIME,DEX 08:09 06/07/2023 1:24 PM CDT [facility] LABORATORY Blood BLOOD SPECIMEN / Unknown Venipuncture / Unknown 06/07/2023 8:09 AM CDT 06/07/2023 8:11 AM CDT Narrative [facility] - 06/07/2023 1:24 PM CDT Biotin supplements may cause clinically significant interference for this test assay. ??If interference is suspected, it is strongly recommended that biotin is discontinued for at least one week prior to retesting. Chuck Barrientos MD SEND OUTS [facility] [address] [place] [address], * SCAN CORRESP-LABORATORY RESULTS (05/07/2023 12:00 AM [facility] [employer]) Scanner OTHER * SCAN CORRESP-IMAGING (05/07/2023 12:00 AM [facility]) Anatomical Region Laterality Modality Other Scanner OTHER * (ABNORMAL) LIPID PANEL W REFLEX MEASURED LDL (11/05/2017 10:33 AM CDT) CHOLESTEROL,TOTAL 205(H) 100 - 199 mg/dL 11/05/2017 11:08 AM CDT [facility] TRIGLYCERIDES 146 <150 mg/dL 11/05/2017 11:08 AM CDT [facility] HDL CHOLESTEROL 47 >40 mg/dL 8 11:08 AM CDT [facility] NON-HDL CHOLESTEROL 158(H) <145 mg/dl 11/05/2017 11:08 AM CDT [facility] CHOL/HDL RATIO 4.36 <4.50 11/05/2017 11:08 AM CDT [facility] LDL CHOLESTEROL 129 <=130 mg/dL 11/05/2017 11:08 AM CDT [facility] PROVIDER ORDERED STATUS RANDOM 11/05/2017 11:08 AM CDT [facility] Blood BLOOD SPECIMEN / Unknown Venipuncture / Unknown 11/05/2017 10:33 AM CDT 11/05/2017 10:34 AM CDT Freddie Ha MD CHEMISTRY [address] [address] from Last 3 Months or Most Recently Relevant to Health Maintenance Care Teams Director Child Relationship Specialty Start Date End Date Freddie Ha MD [address] [place] [address] PCP - General Family Practice 01/12/13
== END 2023-07-09 12:05 | disposition home or self-care (01) ==
PROVIDERS: PCP Family Medicine; Visit Provider Family Medicine
DX: Z01.818 Encounter for other preprocedural examination (principal)
CPT/HCPCS: 80048; 85025

== ENCOUNTER 2025-03-15 08:42 | Outpatient (CLI) | payer BC, SELFPAY | END 2025-03-15 08:43 | disposition home or self-care (01) | PROVIDERS: PCP Family Medicine; Visit Provider Family Medicine | DX: Z13.9 Encounter for screening, unspecified (principal) | CPT/HCPCS: 80061; G0103 ==